=== PATIENT | female | born 1995 | race Caucasian/White ===

== ENCOUNTER 2019-11-24 20:10 | Emergency (ER) | payer OTHER ==
[~2019-11-24] VITALS: Ht 167.6 cm; Wt 74.0 kg
--- NOTE | 2019-11-24 20:42 | NUR ---
on examination. pt states she has RLQ abd pain along with RUQ abd pain. tender to touch. denies any rib pain.
[2019-11-24] MEDS ORDERED: iohexol 300mg/ml 100ml inj. ONE (21:58)
[2019-11-24] MEDS ORDERED: HYDROcodone/acetaminophen 5mg/325mg tablet PO ONE ×2 (22:00→23:50)
[2019-11-24] MEDS ORDERED: ondansetron 4mg rapidly disintigrating tab PO ONE ×2 (22:00→23:50)
[2019-11-24 22:05] LABS: CLARITY,URINE CLEAR (Clear); COLOR,URINE YELLOW (Yellow); GLUCOSE, URINE NEGATIVE (Neg); KETONES,URINE NEGATIVE (Neg); LEUKOCYTE ESTERASE ,URINE NEGATIVE (Neg); NITRITES, URINE NEGATIVE (Neg); OCCULT BLOOD,URINE NEGATIVE (Neg); PROTEIN,URINE NEGATIVE (Neg); UROBILINOGEN,URINE 0.2 E.U/dL (0.2-1.0)
[2019-11-24 22:07] LABS: URINE HCG NEGATIVE (NEG)
[2019-11-24 22:24] LABS: UA COLLECTION TYPE CLN CATCH MIDSTREAM
[2019-11-24 22:25] LABS: BASOPHILS # (AUTO) 0.1 X10'3 (0-0.2); BASOPHILS % (AUTO) 0.8 % (0-1); EOSINOPHILS # (AUTO) 0.2 X10'3 (0-0.9); EOSINOPHILS % (AUTO) 2.7 % (0-6); HEMATOCRIT 38.9 % (35.0-45.0); HEMOGLOBIN 13.4 g/dl (12.0-16.0); LYMPHOCYTES # (AUTO) 2.4 X10'3 (1.1-4.8); LYMPHOCYTES % (AUTO) 28.3 % (21-51); MEAN CORPUSCULAR HEMOGLOBIN 32.5 PG (27.0-31.0); MEAN CORPUSCULAR HGB CONC 34.5 g/dL (33.0-36.5); MEAN CORPUSCULAR VOLUME 94.3 FL (78-98); MEAN PLATELET VOLUME 9.1 FL (7.4-10.4); MONOCYTES # (AUTO) 0.6 X10'3 (0-0.9); MONOCYTES % (AUTO) 6.7 % (2-12); NEUTROPHILS # (AUTO) 5.2 X10'3 (1.8-7.7); NEUTROPHILS % (AUTO) 61.5 % (42-75); PLATELET COUNT 258 X10'3 (140-440); RED BLOOD COUNT 4.13 X10'6 (4.20-5.60); RED CELL DISTRIBUTION WIDTH 12.8 % (11.5-14.5); WHITE BLOOD COUNT 8.4 X10'3 (4.5-11.0)
[2019-11-24 22:35] LABS: ALANINE AMINOTRANSFERASE 30 U/L (12-78); ALBUMIN 3.7 G/DL (3.4-5.0); ALBUMIN/GLOBULIN RATIO 1.1 (1.1-1.5); ALKALINE PHOSPHATASE 73 IU/L (46-116); ANION GAP 8 (8-16); ASPARTATE AMINO TRANSFERASE 25 U/L (10-37); BILIRUBIN,TOTAL 0.2 MG/DL (0.1-1.0); BLOOD UREA NITROGEN 12 MG/DL (7-18); BUN/CREATININE RATIO 16.2 (6.6-38.0); CHLORIDE 105 MMOL/L (99-107); CREATININE 0.74 MG/DL (0.40-0.90); GLUCOSE 90 MG/DL (70-104); POTASSIUM 3.6 MMOL/L (3.5-5.1); SODIUM 140 MMOL/L (135-145); TOTAL PROTEIN 7.2 G/DL (6.4-8.2); eGFR > 90 ML/MIN
[2019-11-24 23:15] VITALS: BP 131/85
--- NOTE | 2019-11-24 23:15 | NUR ---
PT MOVED TO ER4 FROM FTE
[2019-11-24] MEDS ORDERED: IBUP-1984 PO (23:50)
[2019-11-24] MEDS ORDERED: CYCL-1 PO (23:50)
== END 2019-11-25 00:26 | disposition home or self-care (01) ==
LOC: ER 20:11
DX: R10.9 Unspecified abdominal pain (principal); R11.0 Nausea; Z72.89 Other problems related to lifestyle; Z79.899 Other long term (current) drug therapy
CPT/HCPCS: 36415; 74176; 80053; 81003; 81025; 85025; 99284; Q9967